=== PATIENT | male | born 1970 | race Asian ===

== ENCOUNTER 2020-10-24 13:57 | Emergency (ER) | payer OTHER ==
[2020-10-24 14:07] VITALS: BMI 28.7
[2020-10-24] MEDS ORDERED: SODIUM CHLORIDE 1,000 ML IV STA (14:07)
[2020-10-24] MEDS ORDERED: ACETAMINOPHEN 1000 MG/100 ML VIAL (NON FORMULARY) IVPB ONE (14:07)
[2020-10-24] MEDS ORDERED: ACETAMINOPHEN INJECTION 100 ML IVPB ONE (14:33)
[2020-10-24 15:19] LABS: BASO % 0.1 % (0-2.0); HEMATOCRIT 39.8 % (35.4-49); HEMOGLOBIN 13.3 GM/dL (11.7-16.9); LYMPH % 6.9 % (8-40); MCH 28.2 pg (25.7-33.7); MCHC 33.5 g/dl (32.0-35.9); MEAN CELL VOLUME 84.2 fl (80-96); MEAN PLT VOLUME 7.3 fl (7.5-11.1); MONO % 5.3 % (3.8-10.2); NEUT % 87.7 % (42.8-82.8); PLATELET COUNT 300 K/MM3 (134-434); RBC 4.73 M/mm3 (4.00-5.60); RDW 12.9 % (11.9-15.9); WHITE BLOOD COUNT 8.1 K/mm3 (4.0-10.0)
[2020-10-24 15:28] LABS: INR 1.15 (0.83-1.09); PROTHROMBIN TIME (PATIENT) 14.1 SEC (9.7-13.0)
[2020-10-24 15:44] LABS: CHLORIDE 103 mmol/L (98-107); POTASSIUM 3.5 mmol/L (3.5-5.1); SODIUM 140 mmol/L (136-145)
[2020-10-24 15:46] LABS: ANION GAP 10 MMOL/L (8-16); BLOOD UREA NITROGEN 9.8 mg/dL (7-18); CO2 27 mmol/L (21-32)
[2020-10-24 15:47] LABS: GLUCOSE,RANDOM 92 mg/dL (74-106)
[2020-10-24 15:50] LABS: CREATININE 0.8 mg/dL (0.55-1.3); SGOT/AST 30 U/L (15-37); SGPT/ALT 28 U/L (13-61)
[2020-10-24 15:52] LABS: ALK PHOS 59 U/L (45-117); BILIRUBIN,TOTAL 0.3 mg/dL (0.2-1); TOT PROT 7.4 g/dl (6.4-8.2)
[2020-10-24] MEDS ORDERED: BAMLANIVIMAB 700 MG in SODIUM CHLORIDE 250 ML IVPB ONE (16:50)
[2020-10-24] MEDS ORDERED: ACETAMINOPHEN 325 MG TABLET (FP) PO ONE (21:01)
[2020-10-24] MEDS ORDERED: guaiFENesin/D-M SUGAR-FREE/ACLHOL-FREE 118 ML BOTTLE PO ONE (21:02)
[2020-10-24] MEDS ORDERED: guaiFENesin/D-METHORPHAN HB 10 ML UNIT-DOSE CUPS ONE (21:07)
[2020-10-24] MEDS ORDERED: ACETAMINOPHEN 325 MG TABLET (FP) ONE (21:08)
[2020-10-24 23:29] VITALS: BP 126/68; PULSE 108; TEMP 100
== END 2020-10-25 | disposition home or self-care (01) ==
LOC: JER 13:57
PROC: 3E0333Z Introduction of Anti-inflammatory into Peripheral Vein, Percutaneous Approach (ICD-10-PCS; principal; 2020-10-24)
PROC: 3E0337Z Introduction of Electrolytic and Water Balance Substance into Peripheral Vein, Percutaneous Approach (ICD-10-PCS; 2020-10-24)
DX: U07.1 COVID-19 (principal)
CPT/HCPCS: 36415; 71045-TC-FY; 71275-TC; 80053; 82550; 82553; 82728; 84484; 85025; 85379; 85610; 86140; 86850; 86900; 86901; 87804; 93005; 93010; 99285-25; C9803; J0131; M0239; Q0239; Q9967; U0003

== ENCOUNTER 2020-10-27 00:42 | Emergency (ER) | payer OTHER ==
[2020-10-27 00:57] VITALS: TEMP 97.5; BMI 28.7
[2020-10-27] MEDS ORDERED: MAG HYDROX/AL HYDROX/SIMETH 30 ML UNIT-DOSE CUP PO ONE (01:25)
[2020-10-27] MEDS ORDERED: FAMOTIDINE 20 MG/50 ML IVPB 20 MG/50 ML MG IVPB ONE ×2 (01:25→01:48)
[2020-10-27] MEDS ORDERED: MAG HYDROX/AL HYDROX/SIMETH 30 ML UNIT-DOSE CUP ONE (01:48)
[2020-10-27 02:09] LABS: BASO % 0.5 % (0-2.0); EOS % 0.2 % (0-4.5); HEMATOCRIT 38.6 % (35.4-49); HEMOGLOBIN 12.7 GM/dL (11.7-16.9); MCH 27.6 pg (25.7-33.7); MCHC 32.8 g/dl (32.0-35.9); MEAN CELL VOLUME 84.1 fl (80-96); MEAN PLT VOLUME 7.1 fl (7.5-11.1); MONO % 8.8 % (3.8-10.2); NEUT % 78.5 % (42.8-82.8); PLATELET COUNT 282 K/MM3 (134-434); RBC 4.58 M/mm3 (4.00-5.60); RDW 13.2 % (11.9-15.9); WHITE BLOOD COUNT 7.4 K/mm3 (4.0-10.0)
[2020-10-27 02:28] LABS: CHLORIDE 106 mmol/L (98-107); POTASSIUM 3.6 mmol/L (3.5-5.1); SODIUM 141 mmol/L (136-145)
[2020-10-27 02:31] LABS: ALBUMIN 2.6 g/dl (3.4-5.0); ANION GAP 11 MMOL/L (8-16); BLOOD UREA NITROGEN 13.5 mg/dL (7-18); CALCIUM 8.4 mg/dL (8.5-10.1); CO2 24 mmol/L (21-32); GLUCOSE,RANDOM 179 mg/dL (74-106); LIPASE 143 U/L (73-393)
[2020-10-27 02:33] LABS: CREATININE 0.8 mg/dL (0.55-1.3); SGOT/AST 34 U/L (15-37); SGPT/ALT 35 U/L (13-61)
[2020-10-27 02:35] LABS: BILIRUBIN,TOTAL 0.3 mg/dL (0.2-1)
[2020-10-27 02:36] LABS: ALK PHOS 62 U/L (45-117)
[2020-10-27] MEDS ORDERED: SODIUM CHLORIDE 0.9% 500 ML INFUS.BAG IV ONE (02:37)
[2020-10-27] MEDS ORDERED: METOCLOPRAMIDE HCL INJECTION 10 MG/2 ML VIAL IVPUSH ONE ×2 (02:37→03:22)
[2020-10-27] MEDS ORDERED: ACETAMINOPHEN 1000 MG/100 ML VIAL (NON FORMULARY) IVPB ONE (02:45)
[2020-10-27] MEDS ORDERED: ACETAMINOPHEN INJECTION 100 ML IVPB ONE (02:55)
[2020-10-27] MEDS ORDERED: METOCLOPRAMIDE HCL INJECTION 10 MG/2 ML VIAL ONE (03:31)
[2020-10-27 04:33] VITALS: BP 154/74; PULSE 61
== END 2020-10-27 04:33 | disposition home or self-care (01) ==
LOC: JER 00:42
PROC: 3E0333Z Introduction of Anti-inflammatory into Peripheral Vein, Percutaneous Approach (ICD-10-PCS; principal; 2020-10-27)
PROC: 3E033GC Introduction of Other Therapeutic Substance into Peripheral Vein, Percutaneous Approach (ICD-10-PCS; 2020-10-27)
PROC: 3E033GC Introduction of Other Therapeutic Substance into Peripheral Vein, Percutaneous Approach (ICD-10-PCS; 2020-10-27)
DX: U07.1 COVID-19 (principal)
CPT/HCPCS: 36415; 71045-TC-FY; 80053; 83690; 84484; 85025; 93005; 93010; 99285-25; J0131

== ENCOUNTER 2020-10-30 02:14 | Emergency (ER) | payer OTHER ==
[2020-10-30] MEDS ORDERED: SODIUM CHLORIDE 1,000 ML IV SCH (02:30)
[2020-10-30 02:50] VITALS: BMI 30.9
[2020-10-30 02:51] VITALS: TEMP 99.1
[2020-10-30 02:55] LABS: BASO % 0.7 % (0-2.0); EOS % 0.7 % (0-4.5); HEMATOCRIT 39.9 % (35.4-49); HEMOGLOBIN 13.4 GM/dL (11.7-16.9); LYMPH % 12.9 % (8-40); MCH 27.8 pg (25.7-33.7); MCHC 33.5 g/dl (32.0-35.9); MEAN CELL VOLUME 82.9 fl (80-96); MEAN PLT VOLUME 9.1 fl (7.5-11.1); MONO % 7.3 % (3.8-10.2); NEUT % 78.4 % (42.8-82.8); RBC 4.81 M/mm3 (4.00-5.60); RDW 13.3 % (11.9-15.9); WHITE BLOOD COUNT 13.1 K/mm3 (4.0-10.0)
[2020-10-30] MEDS ORDERED: RAPID SEQUENCE INTUBATION KIT NR ONE (02:55)
[2020-10-30] MEDS ORDERED: MIDAZOLAM HCL 2 MG/2 ML SINGLE DOSE VIAL ONE (02:56)
[2020-10-30] MEDS ORDERED: MIDAZOLAM HCL 5 MG/1 ML Single Dose Vial IVPUSH ONE (02:56)
[2020-10-30 03:00] LABS: INR 1.56 (0.83-1.09); PROTHROMBIN TIME (PATIENT) 18.9 SEC (9.7-13.0)
[2020-10-30] MEDS ORDERED: MIDAZOLAM 100 MG/100 ML MG IVPB ONE (03:01)
[2020-10-30 03:03] LABS: ACTIVATED PTT 34.3 SECONDS (25.2-36.5)
[2020-10-30] MEDS ORDERED: levETIRAcetam 500 MG/5 ML INJECTION VIAL IVPB ONE (03:04)
[2020-10-30 03:15] LABS: PLATELET COUNT 24 K/MM3 (134-434)
[2020-10-30] MEDS ORDERED: NICARDIPINE 25 MG in DEXTROSE 5%-WATER - 240 ML IVPB SCH (03:15)
[2020-10-30] MEDS ORDERED: MIDAZOLAM HCL 2 MG/2 ML SINGLE DOSE VIAL IVPUSH ONE (03:19)
[2020-10-30] MEDS ORDERED: ROCURONIUM BROMIDE 50 MG/5 ML VIAL IV ONE (03:20)
[2020-10-30 03:22] LABS: CHLORIDE 92 mmol/L (98-107); POTASSIUM 4.2 mmol/L (3.5-5.1); SODIUM 132 mmol/L (136-145)
[2020-10-30 03:24] LABS: ALBUMIN 2.2 g/dl (3.4-5.0); ANION GAP 13 MMOL/L (8-16); BLOOD UREA NITROGEN 9.6 mg/dL (7-18); CALCIUM 8.5 mg/dL (8.5-10.1); CO2 27 mmol/L (21-32)
[2020-10-30 03:25] LABS: GLUCOSE,RANDOM 154 mg/dL (74-106)
[2020-10-30] MEDS ORDERED: DEXAMETHASONE SOD PHOSPHATE 10 MG/1 ML VIAL IVPUSH ONE (03:25)
[2020-10-30 03:27] LABS: SGOT/AST 41 U/L (15-37); SGPT/ALT 52 U/L (13-61)
[2020-10-30 03:28] LABS: CREATININE 0.9 mg/dL (0.55-1.3)
[2020-10-30 03:29] LABS: CHOLESTEROL 144 mg/dL (50-200); TOT PROT 6.4 g/dl (6.4-8.2); TRIGLYCERIDES 219 mg/dL (0-150)
[2020-10-30 03:30] LABS: LDL CHOLESTEROL (ONLY SJRH) 83 mg/dL (5-100)
[2020-10-30] MEDS ORDERED: MIDAZOLAM 100 MG/100 ML MG IVPB SCH (03:30)
[2020-10-30 03:32] LABS: HDL CHOLESTEROL 31 mg/dL (40-60)
[2020-10-30] MEDS ORDERED: DEXAMETHASONE SOD PHOSPHATE 10 MG/1 ML VIAL ONE (03:36)
[2020-10-30 03:40] LABS: ALK PHOS 121 U/L (45-117)
[2020-10-30] MEDS ORDERED: PROPOFOL 1,000,000 MCG/100 ML VIAL ONE (03:58)
[2020-10-30 04:32] LABS: PLATELET ESTIMATE DECREASED
[2020-10-30 04:55] VITALS: BP 123/83; PULSE 124
[2020-10-30] MEDS ORDERED: PROPOFOL 1,000,000 MCG/100 ML VIAL IVPB SCH (05:15)
== END 2020-10-30 04:15 | disposition short-term general hospital (02) ==
LOC: JER 02:14
PROC: 3E033GC Introduction of Other Therapeutic Substance into Peripheral Vein, Percutaneous Approach (ICD-10-PCS; principal; 2020-10-30)
PROC: 3E033GC Introduction of Other Therapeutic Substance into Peripheral Vein, Percutaneous Approach (ICD-10-PCS; 2020-10-30)
PROC: 3E033GC Introduction of Other Therapeutic Substance into Peripheral Vein, Percutaneous Approach (ICD-10-PCS; 2020-10-30)
PROC: 3E033GC Introduction of Other Therapeutic Substance into Peripheral Vein, Percutaneous Approach (ICD-10-PCS; 2020-10-30)
PROC: 3E033GC Introduction of Other Therapeutic Substance into Peripheral Vein, Percutaneous Approach (ICD-10-PCS; 2020-10-30)
PROC: 3E033GC Introduction of Other Therapeutic Substance into Peripheral Vein, Percutaneous Approach (ICD-10-PCS; 2020-10-30)
DX: I60.9 Nontraumatic subarachnoid hemorrhage, unspecified (principal)
CPT/HCPCS: 36415; 70450-TC; 70496-TC; 70498-TC; 71045-TC-FY; 80053; 80061; 82550; 82962; 83721; 84484; 85025; 85610; 85730; 86850; 86900; 86901; 93005; 93010; 99285-25; J1100